=== PATIENT | male | born 1980 | race Caucasian/White ===

== ENCOUNTER 2021-02-04 10:29 | Day surgery (SDC) | payer OTHER ==
[~2021-02-04] VITALS: Ht 182.9 cm; Wt 41.1 kg
[2021-02-04 11:40] VITALS: BP 120/84; PULSE 77; TEMP 98.3
[2021-02-04] MEDS ORDERED: PRINIVIL5 MG PO (12:00)
[2021-02-04] MEDS ORDERED: PRILOSEC 20MG20 MG PO (12:00)
[2021-02-04] MEDS ORDERED: AMITRIPTYLINE H10 M1 PO (12:00)
[2021-02-04 13:55] VITALS: BP 102/83; PULSE 75
--- NOTE | 2021-02-04 13:55 | NUR ---
Patient arrives to [facility] [place] [address] via cart, accompanied by Isidoro RN Liliana. He is alert and oriented. He ambulates to the chair in his room with steady gait. PIV to TKO. Monitoring is applied - VSS and WNL on room air. He requests and receives a muffin and sprite to eat. Denies pain or nausea.
[2021-02-04 14:10] VITALS: BP 121/77; PULSE 65; TEMP 97.3
--- NOTE | 2021-02-04 14:10 | NUR ---
Patient is resting comfortably. VSS on room air. Denies pain or nausea. Tolerating PO well.
[2021-02-04 14:25] VITALS: BP 116/80; PULSE 60
--- NOTE | 2021-02-04 14:35 | NUR ---
Patient has met discharge criteria. DIscharge instructions are discussed. He denies any questions and verbalizes understanding. PIV is removed with catheter intact and hemostasis achieved. He changes to his clothing independently. He is discharged to home to the care of his , who drives him home in a private vehicle at 1435.
[2021-02-04 16:14] VITALS: BP 102/83; PULSE 69
== END 2021-02-04 14:30 | disposition home or self-care (01) ==
LOC: SDCO 10:29
DX: D12.5 Benign neoplasm of sigmoid colon (principal); K92.1 Melena; I10 Essential (primary) hypertension; K21.9 Gastro-esophageal reflux disease without esophagitis; R10.32 Left lower quadrant pain; R19.7 Diarrhea, unspecified; K64.1 Second degree hemorrhoids; K57.30 Diverticulosis of large intestine without perforation or abscess without bleeding; F32.9 Major depressive disorder, single episode, unspecified; F17.210 Nicotine dependence, cigarettes, uncomplicated; F41.9 Anxiety disorder, unspecified; Z20.822 Contact with and (suspected) exposure to COVID-19; Z79.899 Other long term (current) drug therapy; Z90.89 Acquired absence of other organs
CPT/HCPCS: J2704; J7120

== ENCOUNTER 2023-07-04 06:57 | Day surgery (SDC) | payer OTHER ==
[~2023-07-04] VITALS: Ht 182.9 cm; Wt 97.6 kg
[~2023-07-04 06:57] MED LIST: AMITRIPTYLINE H10 M1 PO; PRILOSEC 20MG20 MG PO; PRINIVIL5 MG PO
[2023-07-04 07:37] VITALS: BP 118/82; PULSE 60; TEMP 97.9
[2023-07-04] MEDS ORDERED: PROVIGIL200 MG PO (07:40)
[2023-07-04] MEDS ORDERED: CRESTOR20 MG PO (07:41)
[2023-07-04] MEDS ORDERED: VITAMIN D250 MCG PO (07:42)
[2023-07-04] MEDS ORDERED: CIALIS20 MG PO (07:43)
[2023-07-04] MEDS ORDERED: MAXALT10 MG (07:43)
[2023-07-04] MEDS ORDERED: DEPAKOTE ER 50500 MG PO (07:43)
[2023-07-04 09:15] VITALS: BP 106/60; PULSE 65; TEMP 96.8
[2023-07-04 09:30] VITALS: BP 112/75; PULSE 54
--- NOTE | 2023-07-04 10:24 | NUR ---
0915-PATIENT ARRIVED VIA CART TO [facility], DROWSY ON ARRIVAL. PT ASSISTED WITH AMBULATION TO RECLINER, WARM BLANKET PROVIDED. VITAL SIGNS TAKEN, VSS. PT DENIES PAIN OR NAUSEA. REPORT OBTAINED FROM VERONICA NEIL. UPDATE GIVEN TO PATIENT AND SPOUSE AT BEDSIDE. 0930-PATIENT TOLERATING PO LIQUIDS WELL, DENIES COMPLAINTS. VSS. IV CATHETER DISCONTINUED, TIP INTACT. PRESSURE HELD AND BANDAGE APPLIED. PATIENT DRESSED INDEPENDENTLY. 0950-DR. OBREGON AT BEDSIDE, PROCEDURE AND PLAN OF CARE DISCUSSED. DISCHARGE INSTRUCTIONS REVIEWED, QUESTIONS INVITED 1003-PATIENT DISCHARGED HOME TO POV VIA WHEELCHAIR, ACCOMPANIED BY SPOUSE. ALL BELONGINGS AND DC PAPERWORK SENT WITH PT.
== END 2023-07-04 10:03 | disposition home or self-care (01) ==
LOC: SDCO 06:57
DX: K29.50 Unspecified chronic gastritis without bleeding (principal); K63.5 Polyp of colon; K44.9 Diaphragmatic hernia without obstruction or gangrene; K62.4 Stenosis of anus and rectum; K57.31 Diverticulosis of large intestine without perforation or abscess with bleeding; K62.89 Other specified diseases of anus and rectum; K31.89 Other diseases of stomach and duodenum; D64.9 Anemia, unspecified; Z87.891 Personal history of nicotine dependence
CPT/HCPCS: J2704; J7120

== ENCOUNTER 2023-07-29 22:11 | Emergency (ER) | payer OTHER ==
[~2023-07-29] VITALS: Ht 182.9 cm; Wt 102.3 kg
[~2023-07-29 22:11] MED LIST changes: +CIALIS20 MG PO; +CRESTOR20 MG PO; +DEPAKOTE ER 50500 MG PO; +MAXALT10 MG; +PROVIGIL200 MG PO; +VITAMIN D250 MCG PO
[2023-07-29 22:13] VITALS: TEMP 97.4
[2023-07-29] MEDS ORDERED: Magnesium Sulfate 4% 50 ML IV ONE (22:30)
[2023-07-29] MEDS ORDERED: NS 1,000 ML IV ONE (22:30)
[2023-07-29] MEDS ORDERED: Ketorolac 30 MG/ML VIAL IV ONE (22:30)
[2023-07-29] MEDS ORDERED: diphenhydrAMINE 50 MG/ML 1 ML VIAL IV ONE (22:30)
[2023-07-29] MEDS ORDERED: dexAMETHasone 10 MG/ML VIAL IV ONE (22:30)
[2023-07-29 22:57] LABS: BASO # 0.1 K/mm3 (0.0-0.2); BASO % 0.4 % (0.0-2.0); EOS # 0.2 K/mm3 (0.0-0.7); EOS % 1.1 % (0.0-4.0); GRAN # 10.7 K/mm3 (1.4-6.5); GRAN % 76.7 % (42.2-75.2); HEMATOCRIT 37.6 % (42.0-52.0); LYMPH # 2.5 K/mm3 (1.2-3.4); MEAN CELL VOLUME 92 fl (80.0-100.0); MEAN CORPUSCULAR HEMOGLOBIN 32 pg (27-31); MEAN CORPUSCULAR HGB CONC 35 g/dl (33.0-37.0); MEAN PLATELET VOLUME 9.7 fl (7.4-10.4); MONO # 0.5 K/mm3 (0.1-0.6); MONO % 3.4 % (1.7-9.3); PLATELET COUNT 305 K/mm3 (130-400); RED BLOOD COUNT 4.07 M/mm3 (4.20-5.60); REDCELL DISTRIBUTION WIDTH-CV 11.9 % (11.5-14.5)
[2023-07-29 23:22] LABS: CALCIUM 9.6 mg/dL (8.4-10.2); CREATININE, serum 1.48 mg/dL (0.72-1.25); POTASSIUM 4.1 mmol/L (3.5-4.5)
[2023-07-30 01:12] VITALS: BP 152/65; PULSE 79
== END 2023-07-30 01:21 | disposition home or self-care (01) ==
LOC: COL.ER 22:11
PROVIDERS: Internal Medicine
DX: G43.109 Migraine with aura, not intractable, without status migrainosus (principal); E86.0 Dehydration
CPT/HCPCS: J1100; J1200; J1885; J2765; J3475; J7030